=== PATIENT | female | born 1965 | race Caucasian/White ===

== ENCOUNTER 2016-09-22 20:53 | Observation (INO) | payer OTHER ==
[~2016-09-22] VITALS: Ht 162.6 cm; Wt 85.5 kg
--- NOTE | ~2016-09-22 | HP ---
PATIENT'S NAME: TESSY LAUGHLIN [facility] AGE: 51 Y [address] ROOM: [address] [place], [place] [address] LOCATION: [facility] ADMIT DATE: 09/22/2016 History & Physical DISCHARGE DATE: FAMILY PHYSICIAN: PHYSICIAN, NO ATTENDING PHYSICIAN: JOSETTE CADE DATE OF SERVICE: CHIEF COMPLAINT: Chest pain. HISTORY OF PRESENT ILLNESS: This is a 51-year-old female, who gets most of her care in [place], that is where she lives. The story is that she has a history remarkable for pulmonary embolism that was diagnosed about 3 years ago and on Coumadin since then. She also has a history of chest pain that was evaluated in [place] about eight months ago. At that time, she was told that she had elevation of troponin. She eventually underwent cardiac catheterization at that time, and she was told it was clean. She was discharged with p.o. propranolol and also p.o. sublingual nitrate and also p.o. nifedipine. I assume that she has been discharged with these medications for angina and possibly Prinzmetal angina. Since discharge, she kept having this chest pain at rest on and off. The patient says that this morning, she woke up with substernal chest pain about intensity of 7/10, she described as a squeezing type of pain on and off, lasted for a few minutes, with radiation to the left shoulder and also associated with dyspnea and some nausea and diaphoresis, but no vomiting. The patient took two tablets of sublingual nitroglycerin, and did receive pain relief, but not totally. Because this chest pain at rest and sometimes on exertion has been going on and off throughout the day, the [facility]. Upon further questioning, the patient also has been having frequent spells of syncope since 1996 when she had head trauma. Last time she had the syncope was about 2 days ago. She stated that at that time, she had four episodes of syncope that day, but she could only remember one of them when she was watching TV. She does state that she has been having poor appetite, and she does have a history of celiac disease and is compliant with gluten free diet and denies any diarrhea or vomiting. REVIEW OF SYSTEMS: As mentioned in the history of present illness. All other systems were reviewed and were negative, except those mentioned in the history of present illness. PAST MEDICAL HISTORY: 1. Celiac disease. PATIENT'S NAME: TESSY LAUGHLIN [facility] AGE: 51 Y [address] ROOM: [id number] [place], [place] [address] LOC[facility]: [facility] ADMIT DATE: 09/22/2016 History & Physical DISCHARGE DATE: FAMILY PHYSICIAN: PHYSICIAN, NO ATTENDING PHYSICIAN: JOSETTE CADE 2. History of chest pain with troponin elevation and possible Prinzmetal angina roughly eight months ago back in [place]. At that time, she had a cardiac catheterization. She was told it was clean. 3. Frequent episodes of syncope of unclear etiology since 1996 after head trauma. 4. Hyperlipidemia. 5. Fibromyalgia. 6. Migraine. 7. Hypertension. 8. History of pulmonary embolism diagnosed 3 years ago back in [place]. She has been on Coumadin since then. ALLERGIES: PENICILLIN CAUSES ANAPHYLAXIS. SULFA CAUSES ANAPHYLAXIS. CORTISONE CAUSES ANAPHYLAXIS. GADOLINIUM ALSO CAUSES ANAPHYLAXIS. BARIUM SULFATE ALSO CAUSES ANAPHYLAXIS. HOME MEDICATIONS: CURRENTLY IS BEING RECONCILED. SOCIAL HISTORY: The patient was a former cigarette smoker. She quit about two years ago. She used to smoke about half pack per day for the last 25 years. She denies any alcohol or any illegal drugs. FAMILY HISTORY: Father has hypertension and had a myocardial infarction in his 60s. Mother is healthy. She has one brother, who also had myocardial infarction at age 50. She has two sisters, both of them also had myocardial infarction, one at age 40s and one in her 50s. PAST SURGICAL HISTORY: 1. Cholecystectomy. 2. Hysterectomy. 3. Laparoscopy with a questionable colectomy, but the patient does not remember all the details and is not sure. PHYSICAL EXAMINATION: VITAL SIGNS: Temperature was 98, blood pressure was 136/87, heart rate was 55, respirations were 13, and saturation was 99% on room air. GENERAL APPEARANCE: Alert and oriented x3. Currently, in no acute distress. HEENT: Pupils were equal, round, and reactive to light. Extraocular muscles are intact. Anicteric sclerae. Nasal turbinates are normal bilaterally. Moist oral mucosa. NECK: No JVD. CARDIOVASCULAR: Regular rate and rhythm. Normal S1 and S2. No murmur. No rubs. No gallops. There is chest wall tenderness to palpation in the anterior chest. PATIENT'S NAME: TESSY LAUGHLIN [facility] AGE: 51 Y [address] ROOM: [address] [address] LOCATION: [facility] ADMIT DATE: 09/22/2016 History & Physical DISCHARGE DATE: FAMILY PHYSICIAN: PHYSICIAN, NO ATTENDING PHYSICIAN: JOSETTE CADE RESPIRATORY: Clear to auscultation. No rales. No rhonchi. No wheezing. No crackles. ABDOMEN: Obese, soft, nontender, and nondistended. Bowel sounds are present. No hepatosplenomegaly. EXTREMITIES: No edema in upper or lower extremities. NEUROLOGICAL: Grossly nonfocal. SKIN: No ulcer. No rash. No cyanosis. LABORATORY DATA: CPK of 342, troponin of less than 0.04, and CK-MB of 4.7. White blood cells were 8.9, hemoglobin was 14.9, hematocrit was 45.7, and platelets were 235. Glucose is 130, BUN is 16, creatinine is 1.2, sodium is 141, potassium is 3.7, chloride is 112, CO2 is 21, calcium is 8.8, total protein is 7.9, albumin is 4.2, AST is 31, ALT is 37, alkaline phosphatase is 184, total bilirubin is 0.4, magnesium is 2.4, and anion gap is 11.7. INR of 1.71 and PTT of 38. GFR is 53. IMAGING STUDIES: Chest x-ray currently has been taken. CT of the chest per PE protocol. Based on the preliminary report, no evidence of pulmonary embolism. Please follow up with the official report in the morning. EKG on admission on September 22, 2016 at 20:59 showed sinus rhythm at heart rate of 61. No axis deviation. No acute ischemic changes. Possible Q-waves in the inferior leads. No prior EKG for comparison. EMERGENCY ROOM COURSE: In the ER, the patient got a one full dose of aspirin. ASSESSMENT AND PLAN: 1. Regarding her chest pain: The patient does have risk factors for coronary disease (strong family CAD history, former smoker, and HTN). However, she was told that she had a clean cardiac catheterization roughly eight months ago in [place]. For this reason, I am going to get the report of cardiac catheterization from [facility] in the morning. She could also be having Prinzmetal angina, given that she was discharged with nitrates and calcium channel nehal and beta-nehal with clean cath. Due to her strong family history, risk factors for CAD, and ongoing chest pain, I will be treating her with ACS protocol. Cardiac enzymes every 6 hours, heparin and nitroglycerin drip, aspirin, switch propranol to lopressor, and start fluvastatin (statin with least incidence of myalgia, she couldn't tolerate home simvastatin due to myalgia). EKG and TTE and Cardiology consult in AM. For possible prinzmetal angina, I will switch nifedipine for amlodipine, switch propranolo for lopressor, and start nitroglycerin drip. Another differential could be costochondritis since chest pain is reproducible on touch. Will r/o ACS first, then can try NSAID for costochondritis. PATIENT'S NAME: TESSY LAUGHLIN [facility] AGE: 51 Y [address] ROOM: [place] [address] LOCATION: [facility] ADMIT DATE: 09/22/2016 History & Physical DISCHARGE DATE: FAMILY PHYSICIAN: PHYSICIAN, NO ATTENDING PHYSICIAN: JOSETTE CADE 2. Regarding the acute kidney injury: Intravenous fluids with lactated Ringer. Check the renal panel again in the morning. 3. Regarding history of pulmonary embolism in the past: I will stop Coumadin, given that there is no more pulmonary embolism on the CT pulmonary angiogram today. Coumadin could also be stopped after discharge since PE was diagnosed 3 years ago. 4. Regarding her history of celiac disease: N.p.o. for now. Once she can eat, she should be on gluten free diet. 5. Regarding her history of hyperlipidemia: We will check lipid panel in the morning. For now, continue with fluvastatin. 6. Regarding her hypertension: She is on Lopressor and also on Imdur, and also on amlodipine as mentioned before. 7. Regarding her recurrent syncope: It could be vasovagal. It could be dehydration. We will be checking her orthostatic vital signs, and also monitor with telemetry monitoring for any arrhythmia. Further plan will depend on clinical course and per Cardiology evaluation and on the echo report. 8. She is a full code. Time spent in care on the day of admission was 45 minutes, where 10 minutes was spent on chart review, and the remainder of the time was spent on interview and the physical examination, and a lot of time was spent on counseling. The counseling includes going over the plan of care in detail with the patient and her and her father at the bedside, and I went over the plan of care multiple times in person and also addressing all the questions and concerns to their satisfaction. Further plan will depend on clinical course. JOSETTE CADE MD CC/modl PATIENT'S NAME: TESSY LAUGHLIN [facility] AGE: 51 Y [address] ROOM: [address] [address] LOCATION: [facility] ADMIT DATE: 09/22/2016 History & Physical DISCHARGE DATE: FAMILY PHYSICIAN: , ASTRID ATTENDING PHYSICIAN: JOSETTE CADE /[id number] D: 224 T: 313 HISTORY & PHYSICAL
--- NOTE | ~2016-09-22 | ER ---
PATIENT'S NAME: TESSY LAUGHLIN [facility] AGE: 51 Y [address] ROOM: [place] [address] LOCATION: [facility] ADMIT DATE: 09/22/2016 ER/Outpatient Report DISCHARGE DATE: FAMILY PHYSICIAN: PHYSICIAN, NO ATTENDING PHYSICIAN: JOSETTE CADE Time of Arrival: 2053 hours. Time of Evaluation: 2115 hours. CHIEF COMPLAINT: This is a 51-year-old female. She was previously reasonably healthy. She is in with complaint of chest pain. HISTORY OF PRESENT ILLNESS: She reports that throughout the day today, she has had waxing and waning chest pain associated with shortness of breath and intermittent diaphoresis. Pain became more severe this evening. She took 2 nitroglycerin, which did improve the pain and then she presented herself here. PAST MEDICAL HISTORY: Significant for celiac disease. She has had pulmonary embolism in the past. She also has had a previous myocardial infarction. She has a history of fibromyalgia. CURRENT MEDICATIONS: Please see list. She is on chronic Coumadin therapy. REVIEW OF SYSTEMS: She states that she has been having episodes of chest pain, although much less severe for the past several weeks. All other systems are negative. SOCIAL HISTORY: She is a nonsmoker. She lives in [place]. She is visiting family. PHYSICAL EXAMINATION: GENERAL: Alert, cooperative female, no acute distress. VITAL SIGNS: Stable. SKIN: Warm and dry. Color is pale. Head, Ears, Eyes, Nose, and Throat: Normal. NECK: Supple. HEART: Regular rate and rhythm without murmur. LUNGS: Clear. Breath sounds are equal. ABDOMEN: Soft and nontender. EXTREMITIES: Normal. NEUROLOGIC: Normal. PATIENT'S NAME: TESSY LAUGHLIN [facility] AGE: 51 Y [address] ROOM: [address] [address] LOCATION: [facility]U ADMIT DATE: 09/22/2016 ER/Outpatient Report DISCHARGE DATE: FAMILY PHYSICIAN: PHYSICIAN, ASTRID ATTENDING PHYSICIAN: JOSETTE CADE LABORATORY DATA: EKG revealed normal sinus rhythm with no acute ST or T-wave changes. Cardiac enzymes revealed CPK was elevated at 342, CK-MB was 2.4. Troponin was negative. CBC and metabolic profile were unremarkable. The patient continued to have intermittent pain in the emergency department. INR was 1.7. CT pulmonary angiogram was negative for PE. The hospitalist was called and agreed to admit the patient. ASSESSMENT: Chest pain/unstable angina. PLAN: Admit for serial enzymes. ERICA GRAY MD JMANUEL/modl /[id number] d: 09/23/16 0538 t: 09/24/16 0552, OUTPATIENT REPORT
--- NOTE | ~2016-09-22 | ECHO ---
Transthoracic Echocardiography Report (TTE) Demographics Patient Name TESSY LAUGHLIN Date of Study 09/23/2016 Patient Number [id number] Visit Number [id number] Date of 1965 Room Number G6307 Gender Female Number Age 51 year(s) Referring Delilah Howe MD Automatic Stacker Mahi Willis RDCS, Physician RVT, RDMS, MECHANICAL ORDNANCE ASSEMBLER Physician Interpreting Nilay Miramontes MD Production Counter Physician Supervising Ordering Delilah Howe MD, MD/MLP Physician Nurse Stress Reference Services Head Conclusions Contractility Score Summary Normal Left Ventricular contractility was noted. Summary Normal LV/RV size and systolic function. The estimated left ventricular ejection fraction is 60-65%. The left ventricle is normal in size . Moderate concentric left ventricular hypertrophy. Diastolic assessment reveals Grade II pseudonormal diastolic function . The left atrium is mildly dilated. No significant valvular abnormalities. Procedure Type of Study TTE procedure:2D Echocardiogram, M-Mode, Doppler , Color Doppler. Procedure Date Date: 09/23/2016 Start: 07:28 AM Study Location: Inpatient Portable Technical Quality: Adequate visualization Additional Indications:CHEST PAIN Appropriate Use Criteria: 9 Patient Status: Routine HR: 50 bpm BP: 97/56 mmHg M-Mode/2D Measurements LV Diastolic Dimension: 3.94 cm LV Systolic Dimension: 1.82 cm LV Septum Diastolic: 1.23 cm LV PW Diastolic: 1.21 cm AO Root Dimension: 2.9 cm AV Cusp Separation: 1.9 cm RV Diastolic Dimension: 2.74 cm LA Dimension: 3.3 cm EF Estimated: 65 % LA volume: 76 ml RV Base: 3.2 cm LVOT: 2 cm RV Mid: 2.6 cm RV Length: 5.8 cm TAPSE: 2.8 cm TDI-S': 12 cm/s Doppler Measurements AV Peak Velocity: 1.09 m/s MV Peak E-Wave: 0.69 m/s AV Peak Gradient: 4.75 mmHg MV Peak A-Wave: 0.5 m/s LVOT Peak Velocity: 0.97 m/s MV E/A Ratio: 1.37 MV P1/2t: 64 msec TR Velocity:2.05 m/s TR Gradient:16.81 mmHg Estimated RVSP: 25 mmHg PV Peak Velocity: 0.75 m/s E' Septal Velocity: 0.06 m/s PV Peak Gradient: 2.24 mmHg E' Lateral Velocity: 0.08 m/s Estimated PASP: 24.81 mmHg A' Septal Velocity: 0.06 m/s Findings Left Ventricle The left ventricle is normal in size . Moderate concentric left ventricular hypertrophy. Diastolic assessment reveals Grade II pseudonormal diastolic function . Right Ventricle Normal right ventricle structure and function. Left Atrium The left atrium is mildly dilated. Right Atrium Normal right atrial size. IVC measures 1.54 cm with inspiratory collapse. Mitral Valve Normal mitral valve structure and function. Trivial mitral regurgitation by color Doppler. Aortic Valve Mild AV sclerosis. No AI. Tricuspid Valve Normal tricuspid valve structure and function. Trivial tricuspid regurgitation by color Doppler. Pulmonic Valve Normal pulmonic valve structure and function. Mild pulmonic valve regurgitation by color Doppler. Pericardial Effusion No evidence of pericardial effusion. Miscellaneous Visualized portions of the aortic root and ascending aorta appear normal in size. Pleural Effusion No evidence of pleural effusion. Signature dtt: RISSA VAZ dtd: 09/23/16 0728 Physician Self Edit
--- NOTE | ~2016-09-22 | CON ---
PATIENT'S NAME: TESSY LAUGHLIN [facility] AGE: 51 Y [address] ROOM: [place] [address] LOCATION: [facility]PCU ADMIT DATE: 09/22/2016 Consultation DISCHARGE DATE: 09/23/2016 FAMILY PHYSICIAN: PHYSICIAN, NO ATTENDING PHYSICIAN: Juan Mazariegos DATE OF CONSULTATION: 09/23/2016 REFERRING PHYSICIAN: Rissa Vaz MD REQUESTING PROVIDER: Dr. Mazariegos. REASON FOR CONSULTATION: Chest pain. CHIEF COMPLAINT: Chest pain. HISTORY OF PRESENTING ILLNESS: The patient is a 51-year-old female, who has history of fibromyalgia. She lives in [place]. She complained of chest discomfort, and she took sublingual nitroglycerin x2, and she continued to have some chest pain, so she finally came into the ER. It was associated with shortness of breath and intermittent diaphoresis as well. No radiation. It was substernal. The patient reports she had a cardiac cath 8 months ago at [facility] in [place], and it was normal. She did not have any significant coronary artery disease, and she was placed on medical therapy. She was on heparin and nitroglycerin drip, however, she continues to have this persistent chest pain. She does report that she was more active in the recent past and moving furniture. She reports she does not have any palpitations. No lower extremity edema. No shortness of breath. No PND. No orthopnea. No other acute complaints. She does have diffuse aches and pains. No fevers, chills, nausea, vomiting, diarrhea, or constipation. She is in [place] visiting her mother. During interview, the patient is quite comfortable, not in any apparent distress, but she does continue to have chest pain about 4 on pain scale. PAST MEDICAL HISTORY: 1. Celiac disease. 2. She had history of PE in the past. 3. Fibromyalgia. PATIENT'S NAME: TESSY LAUGHLIN [facility] AGE: 51 Y [address] ROOM: [address] [place] [address] LOCATION: [facility]PCU ADMIT DATE: 09/22/2016 Consultation DISCHARGE DATE: 09/23/2016 FAMILY PHYSICIAN: PHYSICIAN, NO ATTENDING PHYSICIAN: Juan Mazariegos ALLERGIES: PENICILLIN, SULFA, GADOLINIUM CONTRAST, AND CORTISONE CAUSE ANAPHYLAXIS. HOME MEDICATIONS: 1. Topamax 200 in the morning. 2. Propranolol 60 daily. 3. Neurontin 900 t.i.d. 4. Coumadin 2.5 daily. 5. Zolpidem 10 daily. 6. Lortab q.2 hours p.r.n. pain. 7. Fluticasone spray p.r.n. 8. Nitroglycerin 0.4 mg sublingual p.r.n. 9. Topamax 100 at bedtime. 10. Claritin 10 mg daily. 11. Omeprazole 20 b.i.d. 12. Multivitamins daily. SOCIAL HISTORY: She is a nonsmoker. She lives in [place]. She is visiting her mother here. No illicit drug abuse or alcohol abuse. REVIEW OF SYSTEMS: All review of systems discussed with the patient. Pertinent positives and negatives mentioned in the history of presenting illness. PAST SURGICAL HISTORY: Heart catheterization about 6 months ago. 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 FAMILY HISTORY: No premature coronary artery disease or sudden cardiac . PHYSICAL EXAMINATION: VITAL SIGNS: Blood pressure is 130/70, heart rate in the 70s, respirations 14, afebrile, O2 sats greater than 90% on room air. GENERAL: Alert, cooperative, in no apparent distress. Normal mood and affect. Alert and oriented. SKIN: Warm and dry. HEAD: Atraumatic, normocephalic. EYES: Sclerae white. No xanthelasmas. Mucous membranes moist. NECK: Supple. HEART: S1, S2. Regular rate and rhythm. No murmurs, gallops, or rubs. LUNGS: Clear to auscultation bilaterally. ABDOMEN: Soft. Bowel sounds positive. PATIENT'S NAME: TESSY LAUGHLIN [facility] AGE: 51 Y [address] ROOM: [place] [address] LOCATION: GPCU ADMIT DATE: 09/22/2016 Consultation DISCHARGE DATE: 09/23/2016 FAMILY PHYSICIAN: PHYSICIAN, NO ATTENDING PHYSICIAN: Juan Mazariegos EXTREMITIES: No lower extremity edema. NEURO: Grossly intact. MUSCULOSKELETAL: Good range of motion. IMAGING DATA: EKG shows normal sinus rhythm without any acute ST changes suggestive of ischemia or injury pattern. Echocardiogram: Normal LV contractility. Normal LV, RV size and systolic function. LVEF 60%-65%. Moderate concentric LVH. Grade 2 diastolic dysfunction. Left atrium mildly dilated. No significant valvular abnormalities. LABORATORY DATA: Sodium 145, potassium 3.9, chloride 115, CO2 of 23, anion gap 10.9, glucose 99, BUN 15, creatinine 1.1. Alkaline phosphatase 184, AST 31, ALT 37, GFR 59. Magnesium 2.4, LDL 103. CPK 214, CK-MB 4.1, troponin is less than 0.04. No significant elevation in cardiac enzymes. ProBNP was 93. A1c 5.6. H and H of 14.9 and 45.7, platelets 235. She had a CT scan per PE protocol without any evidence of acute PE. IMPRESSION: 1. Atypical chest pain. 2. History of unprovoked pulmonary embolism 3 years ago, also positive family history of blood clots. 3. Fibromyalgia. PLAN: At this time, her chest pain is likely secondary to perhaps the fibromyalgia versus musculoskeletal. This is persistent. No significant ECG changes suggestive of ischemia during active chest pain. Her cardiac enzymes are essentially negative. She had a recent heart catheterization without any need for intervention about 6 months ago and essentially normal. We will obtain that report and review. Stop heparin and nitroglycerin drip. Given her PE that was unprovoked as well as family history, I think it is important to continue Coumadin till she gets a full evaluation by Hematology, and they can determine whether Coumadin can be stopped. She could have microvascular component, microvascular angina contributing to her chest pain. Consider adding Ranexa 500 mg p.o. b.i.d. Thank you very much for allowing us to participate in the care of Ms. Laughlin. PATIENT'S NAME: TESSY LAUGHLIN [facility] AGE: 51 Y [address] ROOM: [place] [address] LOCATION: GPCU ADMIT DATE: 09/22/2016 Consultation DISCHARGE DATE: 09/23/2016 FAMILY PHYSICIAN: PHYSICIAN, NO ATTENDING PHYSICIAN: Juan Mazariegos RISSA VAZ MD AT/modl /[id number] d: 09/23/164 t: 09/28/16 1236, CONSULTATION REPORT
[2016-09-22 21:17] LABS: BASOPHIL # 0.1 K/uL (0.0-0.2); BASOPHIL % 0.9 %; EOSINOPHIL # 0.2 K/uL (0.0-0.5); HEMATOCRIT 45.7 % (33.0-46.0); HEMOGLOBIN 14.9 g/dL (10.0-15.0); IMMATURE GRANULOCYTE % 0.2 %; LYMPHOCYTE # 3.7 K/uL (0.8-4.0); LYMPHOCYTE % 41.9 %; MCH 27.4 pg (27.0-34.0); MCHC 32.6 gm/dL (32.0-36.5); MCV 84.2 fl (83.0-98.0); MONOCYTE # 0.5 K/uL (0.0-1.0); MONOCYTE % 5.7 %; MPV 11.9 fl (9.4-12.4); NEUTROPHIL # (ANC) 4.4 K/uL (1.8-7.8); NEUTROPHIL % 49.3 %; NRBC % 0 /100WBC (0-0.00); PLATELET COUNT 235 K/uL (150-450); RBC 5.43 M/uL (3.50-5.50); WBC 8.9 K/uL (4.0-11.0)
[2016-09-22 21:25] LABS: INR - (THERAPEUTIC) 1.71 (0.92-1.07); PROTIME 18.1 SECONDS (9.8-11.4); PTT 38 SECONDS (25-32)
[2016-09-22 21:37] LABS: ALBUMIN 4.2 gm/dL (3.5-5.0); ALK PHOS 184 IU/L (33-138); ALT 37 IU/L (12-78); ANION GAP 11.7 (10.0-19.0); AST 31 IU/L (10-40); BLOOD UREA NITROGEN 16 mg/dL (6-24); CALCIUM 8.8 mg/dL (8.5-10.5); CHLORIDE 112 mMol/L (96-110); CO2 21 mMol/L (22-32); CPK 342 IU/L (21-215); CREATININE 1.2 mg/dL (0.5-1.1); MAGNESIUM 2.4 mg/dL (1.8-2.6); POTASSIUM 3.7 mMol/L (3.7-5.1); SODIUM 141 mMol/L (135-145); TOTAL BILIRUBIN 0.4 mg/dL (0.0-1.5); TOTAL PROTEIN 7.9 g/dL (6.0-8.4)
[2016-09-23] MEDS ORDERED: ZOCOR10 MG PO (01:35)
[2016-09-23] MEDS ORDERED: TOPAMAX200 MG PO ×2 (01:39→09:05)
[2016-09-23] MEDS ORDERED: INDERAL LA60 MG PO (01:40)
[2016-09-23] MEDS ORDERED: PROCARDIA XL30 MG PO (01:40)
[2016-09-23] MEDS ORDERED: GABAPENTIN300 MG PO (01:41)
[2016-09-23] MEDS ORDERED: AMBIEN10 MG PO (01:42)
[2016-09-23] MEDS ORDERED: COUMADIN **IA2.5 MG PO (01:42)
[2016-09-23] MEDS ORDERED: HYDROCODON-ACE1 EAC6 PO (01:45)
[2016-09-23] MEDS ORDERED: FLONASE 50 MCG/16 GM NOSE (01:46)
[2016-09-23] MEDS ORDERED: NITROGLYCERIN0.4 MG SL (01:49)
[2016-09-23 04:04] LABS: CPK 262 IU/L (21-215)
[2016-09-23 08:56] LABS: ANION GAP 10.9 (10.0-19.0); CALCIUM 8.7 mg/dL (8.5-10.5); CREATININE 1.1 mg/dL (0.5-1.1); POTASSIUM 3.9 mMol/L (3.7-5.1)
[2016-09-23] MEDS ORDERED: PRILOSEC20 MG PO (09:05)
[2016-09-23] MEDS ORDERED: CLARITIN10 MG PO (09:05)
[2016-09-23] MEDS ORDERED: ALIVE WOMEN'S1 EACH PO (09:09)
[2016-09-23 09:27] LABS: CPK 225 IU/L (21-215)
[2016-09-23 09:45] LABS: INR - (THERAPEUTIC) 1.7 (0.89-1.05); PROTIME 17.9 SECONDS (9.1-10.7)
[2016-09-23 13:19] LABS: CPK 214 IU/L (21-215)
[2016-09-23] MEDS ORDERED: RANEXA ER500 MG PO (16:19)
== END 2016-09-23 16:40 | disposition disaster alternative care site (69) ==
LOC: GMED 20:53 → GPCU 23:52
PROVIDERS: Emergency Medicine; Internal Medicine Interventional Cardiology; ADMIT Internal Medicine
DX: R07.89 Other chest pain (principal); I10 Essential (primary) hypertension; E78.5 Hyperlipidemia, unspecified; M79.7 Fibromyalgia; N17.9 Acute kidney failure, unspecified; G43.909 Migraine, unspecified, not intractable, without status migrainosus; Z86.711 Personal history of pulmonary embolism; Z88.0 Allergy status to penicillin; Z88.2 Allergy status to sulfonamides; Z88.8 Allergy status to other drugs, medicaments and biological substances; Z87.891 Personal history of nicotine dependence; Z82.49 Family history of ischemic heart disease and other diseases of the circulatory system; Z90.49 Acquired absence of other specified parts of digestive tract; Z90.710 Acquired absence of both cervix and uterus; Z79.899 Other long term (current) drug therapy; Z98.890 Other specified postprocedural states
CPT/HCPCS: G0378; J1644; J7120; Q9967